=== PATIENT | female | born 1995 | race Caucasian/White ===

== ENCOUNTER → 2017-03-05 15:46 | Outpatient (CLI) | payer BC | END | disposition home or self-care (01) | LOC: D.RAD 14:30 | DX: M25.562 Pain in left knee (principal) ==

== ENCOUNTER 2017-04-28 14:32 | Emergency (ER) | payer BC ==
[2017-04-28 15:32] LABS: HCG URINE NEGATIVE (NEGATIVE)
[2017-04-28 15:34] LABS: BASOPHILS 0.1 % (0-2); EOSINOPHILS 1.1 % (0-7); HEMATOCRIT 45.2 % (36.0-48.0); HEMOGLOBIN 15.8 g/dL (12-16); IMMATURE GRANULOCYTES 0.1 % (0-5); LYMPHOCYTES 19.4 % (15-50); MCH 34.6 pg (26.0-34.0); MCV 98.9 fL (80.0-100.0); MEAN PLATELET VOLUME 9.5 fL (7.4-10.4); MONOCYTES 4.8 % (2-11); NEUTROPHILS 74.5 % (40-80); PLATELET COUNT 248 10x3/uL (130-400); RBC 4.57 10x6/uL (4.00-5.40); RDW 12.2 % (11.5-14.5); WBC 7.3 10x3/uL (4.8-10.8)
[2017-04-28 15:37] LABS: APPEARANCE CLEAR (CLEAR); BILIRUBIN NEGATIVE (NEGATIVE); COLOR YELLOW (YELLOW); GLUCOSE NEGATIVE (NEGATIVE); KETONE NEGATIVE (NEGATIVE); LEUKOCYTE ESTERASE 2+ (NEGATIVE); NITRITE NEGATIVE (NEGATIVE); PROTEIN 1+ mg/dL (NEGATIVE); UROBILINOGEN NORMAL (NORMAL)
[2017-04-28 15:38] LABS: BACTERIA FEW /hpf (NONE SEEN); EPITHELIAL CELLS 0-5 /hpf (0-5); RED CELLS - URINE 0-5 /hpf (0-5)
[2017-04-28 16:06] LABS: ALBUMIN 3.5 g/dL (3.4-5.0); ALKALINE PHOSPHATASE 67 U/L (46-116); ALT (SGPT) 61 U/L (10-68); BILIRUBIN - TOTAL 0.48 mg/dL (0.2-1.3); CALC OSMOLALITY 270 mosm/kg (275-300); CALCIUM 9.5 mg/dL (8.5-10.1); CARBON DIOXIDE 18.1 mmol/L (21.0-32.0); CHLORIDE - SERUM 102 mmol/L (98-107); CREATININE - SERUM 0.5 mg/dL (0.6-1.3); GLUCOSE 110 mg/dL (74-106); SODIUM 136 mmol/L (136-145); UREA NITROGEN 7 mg/dL (7-18); eGFR NON AFRICAN AMERICAN > 90 mL/min (90-120)
[2017-04-28 16:08] LABS: UDS - AMPHET POSITIVE QUAL (NEGATIVE); UDS - BARB NEGATIVE QUAL (NEGATIVE); UDS - BENZO NEGATIVE QUAL (NEGATIVE); UDS - COCAINE POSITIVE QUAL (NEGATIVE); UDS - METH NEGATIVE QUAL (NEGATIVE); UDS - OPIATE NEGATIVE QUAL (NEGATIVE); UDS - PCP NEGATIVE QUAL (NEGATIVE); UDS - THC NEGATIVE QUAL (NEGATIVE)
[2017-04-28 16:11] LABS: CREATINE KINASE 59 UL (21-215)
== END 2017-04-28 17:55 | disposition home or self-care (01) ==
LOC: D.ER 14:32
PROVIDERS: Emergency Medicine
DX: T78.40XA Allergy, unspecified, initial encounter (principal); X58.XXXA Exposure to other specified factors, initial encounter; I45.10 Unspecified right bundle-branch block

== ENCOUNTER → 2018-01-02 13:57 | Outpatient (CLI) | payer BC ==
[2018-01-02 14:44] LABS: CALC OSMOLALITY 269 mosm/kg (275-300); CALCIUM 10.2 mg/dL (8.5-10.1); CARBON DIOXIDE 26.4 mmol/L (21.0-32.0); CHLORIDE - SERUM 101 mmol/L (98-107); CREATININE - SERUM 0.6 mg/dL (0.6-1.3); GLUCOSE 88 mg/dL (74-106); POTASSIUM - SERUM 4.5 mmol/L (3.5-5.1); SODIUM 136 mmol/L (136-145); T4 THYROXIN - FREE 0.94 ng/dL (0.76-1.46); T4 THYROXINE 8.9 ug/dL (4.7-13.3); THYROID STIMULATING HORMONE 4.51 uIU/mL (0.36-3.74); UREA NITROGEN 10 mg/dL (7-18); eGFR NON AFRICAN AMERICAN > 90 mL/min (90-120)
[2018-01-02 14:45] LABS: BASOPHILS 0.5 % (0-2); EOSINOPHILS 5.6 % (0-7); HEMATOCRIT 39.3 % (36.0-48.0); HEMOGLOBIN 13.2 g/dL (12-16); LYMPHOCYTES 37.6 % (15-50); MCH 33.6 pg (26.0-34.0); MCHC 33.6 g/dL (31.0-37.0); MEAN PLATELET VOLUME 10.2 fL (7.4-10.4); NEUTROPHILS 42.3 % (40-80); PLATELET COUNT 253 10x3/uL (130-400); RBC 3.93 10x6/uL (4.00-5.40); RDW 12.2 % (11.5-14.5); WBC 4.4 10x3/uL (4.8-10.8)
== END | disposition home or self-care (01) ==
LOC: D.LABREF 13:57
PROVIDERS: Internal Medicine Interventional Cardiology
DX: R00.2 Palpitations (principal)

== ENCOUNTER → 2018-01-27 12:15 | Outpatient (CLI) | payer BC ==
[2018-01-27 12:39] LABS: PROTEIN - URINE 2.6 mg/dL (0.0-11.9)
== END | disposition home or self-care (01) ==
LOC: D.LABREF 12:15
PROVIDERS: Obstetrics & Gynecology
DX: Z34.90 Encounter for supervision of normal pregnancy, unspecified, unspecified trimester (principal); Z3A.00 Weeks of gestation of pregnancy not specified

== ENCOUNTER 2018-03-13 09:06 | Emergency (ER) | payer BC ==
[2018-03-13 10:02] LABS: BASOPHILS 0.3 % (0-2); EOSINOPHILS 1.5 % (0-7); HEMATOCRIT 29.9 % (36.0-48.0); HEMOGLOBIN 10.5 g/dL (12-16); IMMATURE GRANULOCYTES 0.3 % (0-5); MCH 32.3 pg (26.0-34.0); MCHC 35.1 g/dL (31.0-37.0); NEUTROPHILS 68.9 % (40-80); RBC 3.25 10x6/uL (4.00-5.40); RDW 12.4 % (11.5-14.5); WBC 6.7 10x3/uL (4.8-10.8)
[2018-03-13 10:05] LABS: PLATELET COUNT 178 10x3/uL (130-400)
[2018-03-13 10:09] LABS: HCG SERUM POSITIVE (NEGATIVE)
== END 2018-03-13 11:13 | disposition home or self-care (01) ==
LOC: D.ER 09:06
PROVIDERS: Emergency Medicine
DX: O20.9 Hemorrhage in early pregnancy, unspecified (principal); Z3A.15 15 weeks gestation of pregnancy

== ENCOUNTER → 2018-03-24 10:34 | Outpatient (CLI) | payer BC | END | disposition home or self-care (01) | LOC: D.MRI 10:30 | DX: G43.109 Migraine with aura, not intractable, without status migrainosus (principal) ==

== ENCOUNTER → 2018-07-23 14:27 | Outpatient (CLI) | payer BC ==
[~2018-07-23 14:27] MED LIST: PRENAVITE1 TAB PO
== END | disposition home or self-care (01) ==
LOC: D.LDO 14:27
DX: O10.913 Unspecified pre-existing hypertension complicating pregnancy, third trimester (principal); Z3A.33 33 weeks gestation of pregnancy

== ENCOUNTER → 2018-07-27 14:18 | Outpatient (CLI) | payer BC | END | disposition home or self-care (01) | LOC: D.LDO 14:18 | DX: O26.893 Other specified pregnancy related conditions, third trimester (principal); Z3A.34 34 weeks gestation of pregnancy ==

== ENCOUNTER → 2018-07-30 15:20 | Outpatient (CLI) | payer BC | END | disposition home or self-care (01) | LOC: D.LDO 15:20 | DX: O26.893 Other specified pregnancy related conditions, third trimester (principal); Z3A.34 34 weeks gestation of pregnancy ==

== ENCOUNTER → 2018-08-04 16:30 | Outpatient (CLI) | payer BC ==
[~2018-08-04 16:30] MED LIST changes: +ALDOMET250 MG PO
[2018-08-23 13:54] VITALS: BMI 26.3
== END | disposition home or self-care (01) ==
LOC: D.LDO 16:30
DX: O10.913 Unspecified pre-existing hypertension complicating pregnancy, third trimester (principal); Z3A.35 35 weeks gestation of pregnancy

== ENCOUNTER → 2018-08-06 14:41 | Outpatient (CLI) | payer BC ==
[2018-08-23 13:54] VITALS: BMI 26.3
== END | disposition home or self-care (01) ==
LOC: D.LDO 14:41
DX: O10.913 Unspecified pre-existing hypertension complicating pregnancy, third trimester (principal); Z3A.35 35 weeks gestation of pregnancy

== ENCOUNTER → 2018-08-11 16:15 | Outpatient (CLI) | payer BC ==
[2018-08-23 13:54] VITALS: BMI 26.3
== END | disposition home or self-care (01) ==
LOC: D.LDO 16:15
DX: O16.3 Unspecified maternal hypertension, third trimester (principal); Z3A.36 36 weeks gestation of pregnancy

== ENCOUNTER → 2018-08-13 14:35 | Outpatient (CLI) | payer BC ==
[2018-08-23 13:54] VITALS: BMI 26.3
== END | disposition home or self-care (01) ==
LOC: D.LDO 14:35
DX: O10.913 Unspecified pre-existing hypertension complicating pregnancy, third trimester (principal); Z3A.36 36 weeks gestation of pregnancy

== ENCOUNTER → 2018-08-17 15:09 | Outpatient (CLI) | payer BC ==
[2018-08-23 13:54] VITALS: BMI 26.3
== END | disposition home or self-care (01) ==
LOC: D.LDO 15:09
DX: O10.913 Unspecified pre-existing hypertension complicating pregnancy, third trimester (principal); Z3A.37 37 weeks gestation of pregnancy

== ENCOUNTER → 2018-08-20 13:41 | Outpatient (CLI) | payer BC ==
[2018-08-23 13:54] VITALS: BMI 26.3
== END | disposition home or self-care (01) ==
LOC: D.LDO 13:41
DX: O10.913 Unspecified pre-existing hypertension complicating pregnancy, third trimester (principal); Z3A.37 37 weeks gestation of pregnancy

== ENCOUNTER 2018-08-23 11:02 | Inpatient (IN) | payer BC ==
[~2018-08-23] VITALS: Ht 165.1 cm; Wt 71.7 kg
--- NOTE | ~2018-08-23 | DS ---
PATIENT:MIKY ROSA :89 MEDICAL RECORD: [id number] DISCHARGE SUMMARY ADMISSION DATE: 08/23/18 DISCHARGE DATE: 08/28/18 DATE OF ADMISSION: 08/23/2018 DATE OF DISCHARGE: 08/28/2018 ADMISSION DIAGNOSIS: Hypertension at term. DISCHARGE DIAGNOSES: 1. Hypertension at term. 2. Mother delivered at term. 3. Failed induction. PROCEDURES: 1. Failed induction of labor. 2. Primary low transverse section. ATTENDING: Vladimir Galvin MD HISTORY OF PRESENT ILLNESS: See the H&P in the chart. SUMMARY OF HOSPITALIZATION: The patient was admitted to the hospital and underwent attempted induction of labor for chronic hypertension at 38 weeks. The patient failed to progress and after counseling consents to a section. Postoperatively, there were some issues with pain management. At this time, the pain is under control. She is voiding without difficulty, and tolerating a regular diet. The patient will be discharged home on Percocet 7.5 mg q.4-6 hours p.r.n. for pain and ibuprofen 800 mg t.i.d. for 3 days. Standard and postoperative precautions have been reviewed. TRANSINT:[id number] Voice Confirmation ID: [id number] DOCUMENT ID: [id number] VLADIMIR GALVIN MD at 1600 CC: [id number] DICTATION DATE: 08/28/18 0506 PRINCIPAL NETWORK ARCHITECT: 08/28/18 0519 DIS IN 08/28/18 [id number] [place] [id number]
[~2018-08-23 11:02] MED LIST changes: -ALDOMET250 MG PO
[2018-08-23] MEDS ORDERED: ALDOMET250 MG PO (12:34)
[2018-08-23 13:15] LABS: HEMATOCRIT 28.5 % (36.0-48.0); HEMOGLOBIN 9.6 g/dL (12-16); MCH 30.2 pg (26.0-34.0); MCHC 33.7 g/dL (31.0-37.0); MCV 89.6 fL (80.0-100.0); MEAN PLATELET VOLUME 9.6 fL (7.4-10.4); RBC 3.18 10x6/uL (4.00-5.40); WBC 5.7 10x3/uL (4.8-10.8)
[2018-08-23 13:35] LABS: APPEARANCE CLEAR (CLEAR); BILIRUBIN NEGATIVE (NEGATIVE); COLOR YELLOW (YELLOW); GLUCOSE NEGATIVE (NEGATIVE); KETONE NEGATIVE (NEGATIVE); NITRITE NEGATIVE (NEGATIVE); PROTEIN NEGATIVE (NEGATIVE); SPECIFIC GRAVITY 1.005 (1.005-1.020); UROBILINOGEN NORMAL (NORMAL)
[2018-08-23 13:37] LABS: AMORPHOUS SEDIMENT <1+ /lpf (NONE SEEN); BACTERIA MODERATE /hpf (NONE SEEN); MUCUS <1+ /lpf (NONE SEEN)
[2018-08-23 13:54] VITALS: BP 122/59; Ht 165.1 cm; Wt 71.7 kg
[2018-08-25 07:28] LABS: RAPID PLASMA REAGIN Non Reactive (Non Reactive)
[2018-08-26] VITALS (13 sets, daily range): BP systolic 123–142; BP diastolic 72–97
[2018-08-27 06:00] VITALS: BP 115/70
[2018-08-27 08:15] VITALS: BP 117/67
[2018-08-27 09:10] LABS: BASOPHILS 0 % (0-2); EOSINOPHILS 0.4 % (0-7); HEMATOCRIT 24.4 % (36.0-48.0); IMMATURE GRANULOCYTES 0.1 % (0-5); LYMPHOCYTES 10.6 % (15-50); MCH 29.7 pg (26.0-34.0); MCHC 32.8 g/dL (31.0-37.0); MCV 90.7 fL (80.0-100.0); MEAN PLATELET VOLUME 9.7 fL (7.4-10.4); MONOCYTES 8.1 % (2-11); NEUTROPHILS 80.8 % (40-80); PLATELET COUNT 141 10x3/uL (130-400); RBC 2.69 10x6/uL (4.00-5.40); RDW 13.4 % (11.5-14.5)
[2018-08-27 12:10] VITALS: BP 107/65
[2018-08-27 19:30] VITALS: BP 139/85
[2018-08-28 02:49] VITALS: BP 126/72
[2018-08-28 09:19] VITALS: BP 130/81
== END 2018-08-28 12:26 | disposition home or self-care (01) | DRG 788 ==
LOC: D.LD 11:02
PROVIDERS: Obstetrics & Gynecology
PROC: 3E033VJ Introduction of Other Hormone into Peripheral Vein, Percutaneous Approach (ICD-10-PCS; principal; 2018-08-23)
PROC: 10D00Z1 Extraction of Products of Conception, Low, Open Approach (ICD-10-PCS; 2018-08-26)
DX: O10.92 Unspecified pre-existing hypertension complicating childbirth (principal); O61.0 Failed medical induction of labor; Z3A.38 38 weeks gestation of pregnancy; Z37.0 Single live birth

== ENCOUNTER → 2019-10-19 10:45 | Outpatient (CLI) | payer BC ==
[2018-08-23 13:54] VITALS: BMI 26.3
[~2019-10-19 10:45] MED LIST changes: +ALDOMET250 MG PO
== END | disposition home or self-care (01) ==
LOC: D.MRI 10:45
PROVIDERS: ATTEND Psychiatry & Neurology Neurology
DX: G43.109 Migraine with aura, not intractable, without status migrainosus (principal)

== ENCOUNTER 2020-04-24 08:57 | Day surgery (SDC) | payer BC ==
[~2020-04-24] VITALS: Ht 165.1 cm; Wt 55.3 kg
--- NOTE | ~2020-04-24 | OP ---
PATIENT NAME: MIKY ROSA MEDICAL RECORD: [id number] :89 LOCATION:D.OPS ADMISSION DATE: SURGEON: YANG GALVEZ MD DATE OF OPERATION: 04/24/2020 PREOPERATIVE DIAGNOSES: Synovial ganglion cyst of the left ring, cyst of tendon sheath. POSTOPERATIVE DIAGNOSES: Synovial ganglion cyst of the left ring, cyst of tendon sheath. PROCEDURE: Excision of ganglion cyst, left ring finger. SURGEON: Yang Galvez MD ANESTHESIA: General. INTRAOPERATIVE COMPLICATIONS: None. SUMMARY OF PATHOLOGIC FINDINGS: The cyst was excised in its entirety and sent to pathology with little degree of difficulty. OPERATIVE SUMMARY IN DETAIL: After obtaining the appropriate preoperative orthopedic surgery consent as well as anesthetic consultation, evaluation and clearance, the patient was brought to the operating room and placed on the operating table in supine position. After adequate general laryngeal mask was administered, tourniquet was placed on the proximal aspect of the left upper extremity. Left upper extremity was then prepped and draped in routine sterile fashion. The arm was elevated and exsanguinated, tourniquet inflated to 250 mmHg. After routine timeout was taken and agreed upon by all given the patient's unique identifiers, a very small transverse incision was made directly over the palpable nodule. Dissection was carried down with mosquito hemostats and the palpable nodule was then completely identified and was removed in its entirety and sent to pathology. The wound was irrigated and closed with 4-0 Prolene and was locally infiltrated with 0.25% Marcaine plain. Sterile dressings were applied. Tourniquet was deflated. The patient was awakened, taken to recovery room in stable condition. All final needle and sponge counts were correct. TRANSINT:[id number] Voice Confirmation ID: [id number] DOCUMENT ID: [id number] YANG GALVEZ MD CC: [id number] DICTATION DATE: 04/27/20 0848 FISCAL ANALYST: 04/27/20 1432 [facility] 04/24/20 [facility] [address] [place] [address]
[~2020-04-24 08:57] MED LIST changes: +COZAAR50 MG PO
[2020-04-24 09:17] LABS: HEMOGLOBIN 13.7 g/dL (12-16); MCH 31.3 pg (26.0-34.0); MCHC 32.6 g/dL (31.0-37.0); MCV 95.9 fL (80.0-100.0); MEAN PLATELET VOLUME 8.4 fL (7.4-10.4); RBC 4.38 10x6/uL (4.00-5.40); WBC 3.7 10x3/uL (4.8-10.8)
[2020-04-24 09:28] LABS: HCG SERUM NEGATIVE (NEGATIVE)
[2020-04-24 10:21] VITALS: BP 126/95; Ht 165.1 cm; Wt 55.3 kg
[2020-04-24] MEDS ORDERED: HYDROCODON-ACE1 EA10 PO (11:32)
== END 2020-04-24 13:35 | disposition home or self-care (01) ==
LOC: D.OPS 08:57
PROVIDERS: Anesthesiology; ATTEND Orthopaedic Surgery
DX: M67.441 Ganglion, right hand (principal)